=== PATIENT | male | born 1945 | race Asian ===

== ENCOUNTER 2019-02-19 20:29 | Emergency (ER) | payer OTHER ==
[~2019-02-19] VITALS: Ht 160 cm; Wt 72.6 kg
[2019-02-19 20:44] VITALS: Ht 160 cm; Wt 72.6 kg
[2019-02-19 23:33] VITALS: BP 165/69
== END 2019-02-19 23:33 | disposition home or self-care (01) ==
LOC: ED 20:29
DX: M75.32 Calcific tendinitis of left shoulder (principal); M10.9 Gout, unspecified; I10 Essential (primary) hypertension; E11.9 Type 2 diabetes mellitus without complications; Z88.8 Allergy status to other drugs, medicaments and biological substances
CPT/HCPCS: 20552; J2001; J3301; J3490